=== PATIENT | female | born 1990 | race Caucasian/White ===

== ENCOUNTER 2017-07-03 18:59 | Emergency (ER) | payer OTHER ==
[~2017-07-03] VITALS: Ht 162.6 cm; Wt 90.8 kg
[2017-07-03] MEDS ORDERED: PRENATAL TABLE1 EAC3 PO (20:33)
[2017-07-03 20:57] LABS: HEMATOCRIT 35.5 % (36.0-46.0); HEMOGLOBIN 12.1 G/DL (11.9-15.5); MCH 30.5 PG (29.0-34.0); MCHC 34.1 G/DL (30.0-36.0); MCV 89.4 FL (83-99); PLATELET COUNT 220 K/uL (156-360); RBC DIS.WIDTH-CV 14.1 % (11.8-14.6); RBC DIS.WIDTH-SD 45.7 % (39-53); RED BLOOD COUNT 3.97 M/uL (3.80-5.20); WHITE BLOOD COUNT 14.2 K/uL (4.1-10.2)
[2017-07-03 21:06] LABS: APPEARANCE CLOUDY ((CLEAR)); BILIRUBIN NEGATIVE; BLOOD NEGATIVE; COLOR AMBER ((YELLOW)); GLUCOSE (STRIP) NEGATIVE; KETONES 80; LEUKOCYTES SMALL; NITRITE NEGATIVE; PROTEIN (STRIP) 30; SPECIFIC GRAVITY 1.029 (1.000-1.030)
[2017-07-03 21:09] LABS: ALBUMIN 3.2 g/dL (3.2-4.8); CHLORIDE 106 mEq/L (99-109); POTASSIUM 3.5 mEq/L (3.7-5.4); SODIUM 137 mEq/L (136-147)
[2017-07-03 21:11] LABS: GLUCOSE 99 mg/dL (70-99); TOTAL PROTEIN 6.8 g/dL (6.4-8.3)
[2017-07-03 21:13] LABS: TOTAL BILIRUBIN 1.2 mg/dL (0.0-1.0)
[2017-07-03 21:15] LABS: ALKALINE PHOSPHATASE 123 IU/L (3-129); CREATININE 0.5 mg/dL (0.6-1.3)
[2017-07-03 21:16] LABS: BACTERIA 1+ /HPF; EPITHELIAL CELLS 2+ /HPF; HYALINE CASTS 0-5 /LPF; MUCUS 1+ /LPF; RED BLOOD CELLS 0-5 /HPF (0-5); UCUL ADDED? YES
[2017-07-03 21:16] LABS: GFR ESTIMATE (CALCULATED) > 59 mL/min/; UREA NITROGEN (BUN) 7 mg/dL (9-23)
[2017-07-03 21:17] LABS: AST (GOT) 13 IU/L (2-34)
[2017-07-03 21:18] LABS: ALT (GPT) 11 IU/L (3-49)
[2017-07-03 21:54] LABS: LIPASE 14 U/L (1.0-51.0)
[2017-07-03] MEDS ORDERED: DICLEGIS DR 101 EACH PO (23:06)
[2017-07-03 23:15] VITALS: BP 123/67
== END 2017-07-03 23:33 | disposition home or self-care (01) ==
LOC: EME 18:59 → RME 18:59
PROVIDERS: Physician Assistant
DX: O21.2 Late vomiting of pregnancy (principal); Z3A.34 34 weeks gestation of pregnancy; O99.333 Smoking (tobacco) complicating pregnancy, third trimester; F17.200 Nicotine dependence, unspecified, uncomplicated
CPT/HCPCS: 80053; 81003; 83690; 85027; 87086; 99281; 99284; J2405; J7030

== ENCOUNTER 2017-12-29 20:36 | Emergency (ER) | payer OTHER ==
[~2017-12-29] VITALS: Ht 162.6 cm; Wt 88.9 kg
[~2017-12-29 20:36] MED LIST: DICLEGIS DR 101 EACH PO; PRENATAL TABLE1 EAC3 PO
[2017-12-29 22:27] LABS: HEMATOCRIT 36.4 % (36.0-46.0); MCHC 35.7 G/DL (30.0-36.0); MCV 86.9 FL (83-99); PLATELET COUNT 236 K/uL (156-360); RBC DIS.WIDTH-CV 13.2 % (11.8-14.6); RBC DIS.WIDTH-SD 41.1 % (39-53); RED BLOOD COUNT 4.19 M/uL (3.80-5.20); WHITE BLOOD COUNT 10.3 K/uL (4.1-10.2)
[2017-12-29 22:35] LABS: APPEARANCE SL.HAZY ((CLEAR)); BILIRUBIN NEGATIVE; BLOOD SMALL; COLOR YELLOW ((YELLOW)); GLUCOSE (STRIP) NEGATIVE; KETONES NEGATIVE; LEUKOCYTES TRACE; NITRITE NEGATIVE; PROTEIN (STRIP) NEGATIVE; UROBILINOGEN 0.2 MG/DL (0.2-1.0)
[2017-12-29 22:42] LABS: ALBUMIN 3.8 g/dL (3.2-4.8); CHLORIDE 106 mEq/L (99-109)
[2017-12-29 22:43] LABS: SODIUM 137 mEq/L (136-147)
[2017-12-29 22:45] LABS: GLUCOSE 110 mg/dL (70-99); TOTAL PROTEIN 6.6 g/dL (6.4-8.3)
[2017-12-29 22:47] LABS: TOTAL BILIRUBIN 0.4 mg/dL (0.0-1.0)
[2017-12-29 22:48] LABS: ALKALINE PHOSPHATASE 70 IU/L (3-129)
[2017-12-29 22:49] LABS: CREATININE 0.6 mg/dL (0.6-1.3); GFR ESTIMATE (CALCULATED) > 59 mL/min/
[2017-12-29 22:50] LABS: AST (GOT) 10 IU/L (2-34); UREA NITROGEN (BUN) 13 mg/dL (9-23)
[2017-12-29 22:51] LABS: ALT (GPT) 11 IU/L (3-49)
[2017-12-29 22:52] LABS: LIPASE 18 U/L (1.0-51.0)
[2017-12-29 22:56] LABS: BACTERIA RARE /HPF; EPITHELIAL CELLS 2+ /HPF; MUCUS TRACE /LPF; RED BLOOD CELLS 0-5 /HPF (0-5); UCUL ADDED? NO; WHITE BLOOD CELLS 0-5 /HPF (0-5)
[2017-12-29 23:06] LABS: QUANTITATIVE HCG 73208.8 MIU/ML
[2017-12-30] MEDS ORDERED: KEFLEX500 MG PO (00:20)
[2017-12-30 00:40] VITALS: BP 133/83
== END 2017-12-30 00:43 | disposition home or self-care (01) ==
LOC: EME 20:36
PROVIDERS: Physician Assistant
PROC: 0U9MXZZ Drainage of Vulva, External Approach (ICD-10-PCS; principal; 2017-12-30)
DX: O99.89 Other specified diseases and conditions complicating pregnancy, childbirth and the puerperium (principal); N76.4 Abscess of vulva; Z3A.10 10 weeks gestation of pregnancy; O20.0 Threatened abortion; O99.331 Smoking (tobacco) complicating pregnancy, first trimester; F17.200 Nicotine dependence, unspecified, uncomplicated
CPT/HCPCS: 76801; 80053; 81003; 83690; 84702; 85027; 86900; 86901; 99281; 99284